=== PATIENT | male | born 1965 | race African-American/Black ===

== ENCOUNTER → 2016-12-31 | Outpatient (CLI) | payer BC ==
--- NOTE | 2016-12-31 09:03 | US ---
EXAMINATION TYPE: US extremity nonvascular Limited, left arm DATE OF EXAM: 12/31/2016 7:59 AM COMPARISON: NONE CLINICAL HISTORY: 51-year-old male R59.1 Enlargement Of Lymph Nodes. Two palpable lumps on left medial arm-above the elbow. Patients states keeps changing in size and sometimes turns hard. TECHNIQUE: Targeted sonographic examination at the site of patient's palpable abnormality, medial left arm just above the level of the elbow. Findings: 2 hypoechoic lesions are seen within the subcutaneous tissues just deep to the skin surface, the first is heterogeneous circumscribed measuring 1.4 x 1.2 x 0.8 cm and shows no significant vascularity. The second is complex with some internal possibly fluid or necrotic area and also shows no significant vascularity. Some peripheral color flow is present. This measures 9 x 9 x 6 mm. IMPRESSION: Suspect 2 lymph nodes measuring up to 1.4 cm at the site of palpable abnormality along the medial left arm just above the elbow. These appear heterogeneous and possibly with some central necrosis or suppuration. If these do not respond to conservative therapy and persist or enlarge, tissue sampling can be considered. MTDD
== END | disposition home or self-care (01) ==
LOC: RADUSWWP 07:37
PROVIDERS: ATTEND Family Medicine
DX: R93.8 Abnormal findings on diagnostic imaging of other specified body structures (principal); R59.1 Generalized enlarged lymph nodes

== ENCOUNTER → 2017-02-09 | Outpatient (CLI) | payer BC ==
[2017-02-09 09:26] VITALS: BMI 25.9
== END | disposition home or self-care (01) ==
LOC: MNTWWP 08:59
PROVIDERS: ATTEND Nurse Practitioner Adult Health
DX: E78.2 Mixed hyperlipidemia (principal)
CPT/HCPCS: 97802

== ENCOUNTER → 2021-04-04 | Outpatient (CLI) | payer BC ==
--- NOTE | 2021-04-04 13:42 | US ---
EXAMINATION TYPE: US venous doppler duplex LE RT DATE OF EXAM: 04/04/2021 11:36 AM COMPARISON: NONE CLINICAL HISTORY: R60.0 EDEMA. edema SIDE PERFORMED: Right TECHNIQUE: The lower extremity deep venous system is examined utilizing real time linear array sonog lamar with graded compression, doppler sonography and color-flow sonography. VESSELS IMAGED: Common Femoral Vein Deep Femoral Vein Greater Saphenous Vein * Femoral Vein Popliteal Vein Small Saphenous Vein * Proximal Calf Veins (* superficial vessels) Right Leg: Negative for DVT IMPRESSION: 1. Right lower extremity ultrasound negative for deep venous thrombosis
== END | disposition home or self-care (01) ==
LOC: RADUSWWP 11:08
PROVIDERS: ATTEND Family Medicine
DX: R60.0 Localized edema (principal)